=== PATIENT | female | born 1970 | race Caucasian/White ===

== ENCOUNTER → 2019-10-13 | Outpatient (CLI) | payer BC ==
--- NOTE | 2019-10-13 13:47 | RADIOLOGY REPORT (SQ) ---
EXAM DESCRIPTION: U/S RETROPERITON (RENAL/AORTA) IMAGES COMPLETED DATE/TIME: 10/13/2019 1:40 pm REASON FOR STUDY: N23 UNSPECIFIED RENAL COLIC M79.604 PAIN IN RIGHT LEG M25.561 PAIN IN RIGHT KNEE N23 UNSPECIFIED RENAL COLIC COMPARISON: None. TECHNIQUE: Dynamic and static grayscale images acquired of the kidneys and bladder and recorded on P ACS. Additional selected color Doppler and spectral images recorded. LIMITATIONS: None. FINDINGS: RIGHT KIDNEY: Normal size. Normal echogenicity. No solid or suspicious masses. No hydronep hrosis. No calcifications. LEFT KIDNEY: Normal size. Normal echogenicity. No solid or suspicious masses. No hydronephrosis. No calcifications. BLADDER: No masses. OTHER FINDINGS: No other significant finding. IMPRESSION: NORMAL RENAL AND BLADDER ULTRASOUND. TECHNICAL DOCUMENTATION: JOB ID: [id number] 2010 [employer]- All Rights Reserved Reading location - IP/workstation name: [email or web address]
--- NOTE | 2019-10-13 14:21 | RADIOLOGY REPORT (SQ) ---
EXAM DESCRIPTION: CT RT LOWER EXTREMITY WITH IMAGES COMPLETED DATE/TIME: 10/13/2019 2:05 pm REASON FOR STUDY: M79.604 PAIN IN RIGHT LEG M79.604 PAIN IN RIGHT LEG M25.561 PAIN IN RIGHT KNEE N 23 UNSPECIFIED RENAL COLIC COMPARISON: None. TECHNIQUE: Postcontrast axial imaging performed through the right lower extremity with reformatted c oronal and sagittal imaging windowed for bone and soft tissues. Images saved to PACS. 3D IMAGING: Were 3D images as MIP, SSD, or volume rendering performed at the work station? No. All CT scanners at this facility use dose modulation, iterative reconstruction, and/or weight based d osing when appropriate to reduce radiation dose to as low as reasonably achievable (ALARA). [facility]: Dose Right [facility]: CareDose [facility]: Dose Right [facility]: Teradose 4D [facility]: [employer] CONTRAST TYPE AND DOSE: contrast/concentration: Isovue 350.00 mg/ml; Total Contrast Delivered: 50.0 ml; Total Saline Delivered: 80.0 ml RENAL FUNCTION: Creatinine 1.1 LIMITATIONS: None. RADIATION DOSE: CT Rad equipment meets quality standard of care and radiation dose reduction techniq ues were employed. CTDIvol: 6.7 mGy. DLP: 303 mGy-cm.mGy. FINDINGS: SOFT TISSUES: Minimal soft tissue edema anterior to the tibia. This may related scar from prior surgery. BONES: Postsurgical changes with intramedullary kelley in place in the tibia. Muscle stimulator is in p lace. Extensive cortical thickening from prior trauma in the mid and distal tibia and fibula. MINERALIZATION: Normal. ENHANCEMENT: No abnormal enhancement. OTHER: No other significant finding. IMPRESSION: Posttraumatic and postsurgical changes. Mild soft tissue edema probably representing sc ar. No joint effusion. No focal fluid collections. TECHNICAL DOCUMENTATION: JOB ID: [id number] Quality ID # [id number]: Final reports with documentation of one or more dose reduction techniques (e.g., Au tomated exposure control, adjustment of the mA and/or kV according to patient size, use of iterative reconstruction technique) 2010 [employer]- All Rights Reserved Reading location - IP/workstation name: [email or web address]
== END ==
LOC: RAD 13:15
PROVIDERS: ATTEND Internal Medicine
DX: M25.561 Pain in right knee (principal); M79.604 Pain in right leg; N23 Unspecified renal colic
CPT/HCPCS: 76770; 82565